=== PATIENT | male | born 1980 | race Caucasian/White ===

== ENCOUNTER 2021-06-05 15:27 | Emergency (ER) | payer OTHER ==
[~2021-06-05 15:27] MED LIST: CYCLOBENZAPRINE10 MG PO; IBUPROFEN600 MG PO; LODINE CAP 300300 MG PO; ZOFRAN ODT 4 MG4 MG SL
[2021-06-05] MEDS ORDERED: NAPROSYN500 MG PO (19:34)
[2021-06-05] MEDS ORDERED: CYCLOBENZAPRINE5 MG PO (19:34)
== END 2021-06-05 20:53 | disposition home or self-care (01) ==
LOC: ER1 15:27
DX: G89.29 Other chronic pain (principal); M54.5 Low back pain
CPT/HCPCS: 96372; 99283; J1100; J1885

== ENCOUNTER → 2022-01-14 | Outpatient (CLI) | payer OTHER ==
[~2022-01-14] MED LIST changes: +CYCLOBENZAPRINE5 MG PO; +NAPROSYN500 MG PO
== END ==
LOC: KOH-I 08:10
DX: M25.551 Pain in right hip (principal)
CPT/HCPCS: 73502